=== PATIENT | female | born 1960 | race Caucasian/White ===

== ENCOUNTER 2016-11-15 19:33 | Emergency (ER) | payer BC ==
[2016-11-15 19:46] VITALS: BP 155/87
[2016-11-15] MEDS ORDERED: Amoxicillin/Clavulanate TAB* 875 MG PO ONE ×3 (20:17→22:09)
[2016-11-15] MEDS ORDERED: HYDROcodone/ACETAMIN 5-325 MG* 1 TAB PO ONE ×2 (20:17→21:39)
[2016-11-15] MEDS ORDERED: Tetan/Diph/Pertus SYR(Tdap)* 0.5 ML SYR(BOOSTRIX) use SYR IM ONE (20:17)
--- NOTE | 2016-11-15 20:17 | UC ---
Bite Injury/Animal HPI - HPI Summary HPI Summary: Broke up a dog fight between her and her sister-in -laws dogs---laceration on, pw to left wrist, nail avulsion and laceration to left middle finger tip right thumb - History of Current Complaint Chief Complaint: UCBiteInjury Stated Complaint: DOG BITES Time Seen by Provider: 11/15/16 20:10 Hx Obtained From: Patient ?: No Severity Currently: Moderate Severity Initially: Moderate Pain Intensity: 8 Pain Scale Used: 0-10 Numeric Onset/Duration: Sudden Onset, Lasting Hours, Still Present Type of Bite: Pet Has Animal Been Immunized?: Yes Character: Puncture, Full-Thickness, Abrasion/Laceration Aggravating Factor(s): Nothing Alleviating Factor(s): Nothing Associated Signs And Symptoms: Positive: Drainage Hx of Bite: Provoked by: - dogs were fighting Animal Available for Observation: Yes Animal Control Notified: Yes - Allergies/Home Medications Allergies/Adverse Reactions: Allergies Allergy/AdvReac Type Severity Reaction Status Date / Time No Known Allergies Allergy Verified 11/15/16 19:46 PMH/Surg Hx/FS Hx/Imm Hx Previously Healthy: Yes - Family History Known Family History: Positive: None Family History: denies cardiovascular issues in family lineage - Social History Occupation: Employed Full-time Lives: With Family Alcohol Use: Occasionally Substance Use Type: None Smoking Status (MU): Never Smoked Tobacco Review of Systems Constitutional: Negative Skin: Other - dog bites and pw wound as described Eyes: Negative ENT: Negative Respiratory: Negative Cardiovascular: Negative Gastrointestinal: Negative Genitourinary: Negative Motor: Negative Neurovascular: Negative Musculoskeletal: Negative, Arthralgia Neurological: Negative Psychological: Negative All Other Systems Reviewed And Are Negative: Yes Physical Exam Triage Information Reviewed: Yes Appearance: Well-Appearing, Well-Nourished, Pain Distress Vital Signs: Initial Vital Signs Temp 97.8 F 11/15/16 19:40 Pulse 117 11/15/16 19:40 Resp 12 11/15/16 19:40 BP 155/87 11/15/16 19:40 Pulse Ox 99 11/15/16 19:40 Vital Signs Reviewed: Yes Eye Exam: Normal Eyes: Positive: Conjunctiva Clear ENT Exam: Normal ENT: Positive: Normal ENT inspection, Hearing grossly normal, TMs normal. Negative: Nasal congestion, Nasal drainage, Tonsillar swelling, Tonsillar exudate, Trismus Dental Exam: Normal Neck exam: Normal Neck: Positive: Supple, Nontender Respiratory Exam: Normal Respiratory: Positive: Chest non-tender, Lungs clear, Normal breath sounds, No respiratory distress, No accessory muscle use Cardiovascular Exam: Normal Cardiovascular: Positive: RRR, No Murmur, Pulses Normal, Brisk Capillary Refill Musculoskeletal Exam: Normal Musculoskeletal: Positive: Strength Intact, ROM Intact, No Edema Neurological Exam: Normal Neurological: Positive: Alert, Muscle Tone Normal Psychological Exam: Normal Psychological: Positive: Normal Response To Family Skin Exam: Normal Skin: Positive: Other - partial skin avulsion right thumb, laceration with nail avulsion and don fracture distal left 3rd finger, PW times 2 left wrist Procedures - Laceration/Wound Repair 1 Description: Irregular Length, Depth and Shape: partially avulsed skin right thumb Betadine Prep?: No Laceration/Wound Explored: contaminated - dog bite Closure: SteriStrips Layer Closure?: No Sterile Dressing Applied?: No 2 Location: Other - left wrist Description: Irregular Length, Depth and Shape: PW Betadine Prep?: No Irrigated w/ Saline (ccs): 250 Laceration/Wound Explored: contaminated - dog bite Layer Closure?: No Sterile Dressing Applied?: Yes 3 Location: Other - left third finger Description: Irregular Length, Depth and Shape: nail avulsion, with laceration and don fracture--- washed and soaked in hiblclens and warm water Betadine Prep?: No Laceration/Wound Explored: contaminated - dog bite Layer Closure?: No Sterile Dressing Applied?: Yes - left open Diagnostics - Radiology No standard instances Xray Interpretation: Positive (See Comments) - tuft fracture left third finger Bite Injury Course/Dx - Course Course Of Treatment: dressings as applied, update Boostrix, augmentin, pain med , follow with Dr. Israel in the morning - Differential Dx/Diagnosis Differential Diagnosis/HQI/PQRI: Crush Injury, Fracture, Laceration, Puncture Provider Diagnoses: PW, open fracture left third finger, update Boostrix Discharge - Discharge Plan Condition: Stable Disposition: HOME Prescriptions: Amoxicillin/Clavulanate TAB* [Augmentin TAB 875*] 875 mg PO BID #18 tab Hydrocodone-Acetaminophen [Hydrocodone/Acetaminophen 5-325 mg] 1 tab PO Q6H PRN #16 tab MDD 4 PRN Reason: Pain Ibuprofen TAB* [Motrin TAB* 600 MG] 600 mg PO Q6H PRN #30 tab PRN Reason: pain Patient Education Materials: Amoxicillin/Clavulanate Potassium (By mouth), Diphtheria/Acellular Pertussis/Tetanus Booster Vaccine (By injection), Animal Bite (ED), DASH Eating Plan (ED), Hypertension (ED), RICE Therapy (ED) Referrals: [facility] [place] PHYSICIAN REFERRAL [Outside] - 2 Weeks Adelina Israel MD [Medical Doctor] - 1 Day
--- NOTE | 2016-11-15 21:12 | RAD ---
Indication: Left middle finger injury. 3 views of the left middle finger demonstrates a fracture through the distal tuft of the distal phalanx of the middle finger. No significant displacement is noted. IMPRESSION: Fracture through the distal tuft of the distal phalanx of the middle finger.
--- NOTE | 2016-11-15 21:13 | RAD ---
Indication: Right Thumb injury. 3 views of the thumb demonstrates no fracture. Degenerative changes of the trapezium first metacarpal joint is noted. No fracture is identified. IMPRESSION: No fracture of the thumb is noted.
--- NOTE | 2016-11-15 21:16 | RAD ---
Indication: Left wrist injury 3 views of the wrist demonstrates no fracture. No other bone or joint abnormality is identified. IMPRESSION: NO FRACTURE OF THE WRIST IS NOTED.
[2016-11-15] MEDS ORDERED: Benzoin Compound STICK TOPICAL ONE (21:36)
== END 2016-11-15 22:18 | disposition home or self-care (01) ==
LOC: UCEAST 19:33
DX: S62.603B Fracture of unspecified phalanx of left middle finger, initial encounter for open fracture (principal); S61.051A Open bite of right thumb without damage to nail, initial encounter; S61.552A Open bite of left wrist, initial encounter; W54.0XXA Bitten by dog, initial encounter; Y92.9 Unspecified place or not applicable
CPT/HCPCS: 73140; 90471; 90715; 99203; A9270-GY; G0463

== ENCOUNTER 2016-11-19 08:25 | Day surgery (SDC) | payer BC ==
[2016-11-19] MEDS ORDERED: ceFAZolin 2 GM PREMIX(*) 2 GM/50 ML BAG IVPB ONE (08:42)
[2016-11-19] MEDS ORDERED: Buffered Lidocaine 0.9% SYRIN* 5 ML/SYR SYRINGE ONE (08:43)
[2016-11-19] MEDS ORDERED: Ondansetron INJ* 2 MG/ML VIAL IV PRN (08:51)
[2016-11-19] MEDS ORDERED: PROCHLORPERAZINE INJ 5 MG/ML 2 ML VIAL IV PRN (08:51)
[2016-11-19] MEDS ORDERED: DiMENhydriNATE IV* 50 MG/ML VIAL IV PUSH PRN (08:51)
[2016-11-19] MEDS ORDERED: HYDROcodone/ACETAMIN 5-325 MG* 1 TAB PO PRN (08:51)
[2016-11-19] MEDS ORDERED: Acetaminophen TAB* 325 MG PO PRN (08:51)
[2016-11-19] MEDS ORDERED: Buffered Lidocaine 0.9% SYRIN* 5 ML/SYR SYRINGE INTRADERM ONE (08:51)
[2016-11-19] MEDS ORDERED: Midazolam* 1 MG/ML 2 ML VIAL (2 MG) ONE (09:32)
[2016-11-19] MEDS ORDERED: fentaNYL* 50 MCG/ML 2 ML VIAL (100 MCG VIAL) ONE (09:32)
[2016-11-19] MEDS ORDERED: Bupivacaine 0.25% SDV* 30 ML ONE (09:47)
[2016-11-19] MEDS ORDERED: Famotidine IV* 10 MG/ML 2 ML (20 mg) ONE (10:01)
[2016-11-19] MEDS ORDERED: Lidocaine 2% PF * 5 ML VIAL ONE (10:09)
[2016-11-19] MEDS ORDERED: Ketorolac INJ* 30 MG/ML 1 ML VIAL ONE (10:09)
[2016-11-19] MEDS ORDERED: Propofol* 10 MG/ML 20 ML BTL IV PUSH ONE (10:09)
[2016-11-19] MEDS ORDERED: KETAMINE HCL* 50 MG/ML 10 ML VIAL ONE (10:11)
[2016-11-19] MEDS ORDERED: diPHENhydraMINE IV* 50 MG/ML 1 ml VIAL (BENADRYL) ONE (10:27)
[2016-11-19] MEDS ORDERED: Dexamethasone IV* 4 MG/ML 1 ML (4 MG) ONE (10:38)
[2016-11-19 11:57] VITALS: BP 131/61
--- NOTE | 2016-11-20 04:16 | OP ---
DATE OF OPERATION: 11/19/16 - [facility] DATE OF : 60 SURGEON: Mika Porras MD PROCESS ENVIRONMENTAL TECHNICIAN: DERRICK Lowe ANESTHESIOLOGIST: Dr. Cai. ANESTHESIA: Local MAC. PRE-OP DIAGNOSES: 1. Dog bite, left middle finger tip and distal forearm. 2. Left middle finger distal phalanx tuft fracture and significant nail bed injury related to the dog bite. 3. Left distal volar forearm bite wound with infection. POST-OP DIAGNOSES: 1. Dog bite, left middle finger tip and distal forearm. 2. Left middle finger distal phalanx tuft fracture and significant nail bed injury related to the dog bite. 3. Left distal volar forearm bite wound with infection. OPERATIVE PROCEDURE: 1. I and D of left middle finger tip open fracture, debridement of skin, subcutaneous tissue, and bone. 2. Nail bed repair, left middle finger with partial avulsion of remaining nail plate. 3. I and D of left distal volar forearm bite wound. INDICATIONS: was bitten late last week by her sister's dog. She came in to the office after having been in the ER where the wound was dressed. I cleaned it up a little bit there and started her on some Augmentin last Saturday. She now presents today, Saturday, for I and D of the fracture nail bed repair. The volar forearm wound in clinic last Saturday was definitely looking infected. I had opened it just a bit and have been having her soak it. She had been taking Augmentin, it has improved, but still felt like it would improve with I and D of the puncture wound. ESTIMATED BLOOD LOSS: 5 mL. COMPLICATIONS: None. FINDINGS: As expected. DESCRIPTION OF PROCEDURE: was seen in the preoperative holding area and the correct side, site, and procedure were identified. We came back to the operating room where she got some anesthesia. We had a time-out and then I performed a digital block with 0.25% plain Marcaine as well as I anesthetized the area of the volar distal forearm bite wound. The arm was then prepped with a Betadine scrub and then draped in a standard fashion. A formal time-out was performed. I began by exsanguinating the arm with the esmarch and inflating the tourniquet to 250 mmHg. The curved iris scissors were used to remove the multiple fragments of nail plate and trim the nail right at the level of the nail fold where it was healthy and proximal to the involved area. There were a couple of necrotic edges in the nail matrix. These were trimmed back with the mohegan blade. All of the nonviable tissue was debrided. I then was able to place a two-prong skin hook and reopen the wound to expose the fracture. There were a couple of loose bony fragments that were debrided. There was some dog hair that was encountered and removed. After I had a clean debridement, I went ahead and irrigated out the wound, copious amounts of irrigation until it looked very clean. After I had debrided all of the and nonviable nail bed back to smooth clean edges, I had 2 curvilinear edges which I could then appose. I therefore placed four 6-0 fast- absorbing gut sutures to bring the nail bed edges into nice apposition. This closed down very nicely in essentially a straight transverse line. This looked very good, so I went ahead and turned my attention to the forearm. I opened up the traumatic margins proximally and distally a couple of centimeters. The total incision was 2 to 3 cm in length. The edges of the bite wound were excised sharply. The tract of the bite wound was debrided. It tracked right down to the FCR tendon sheath and went just ulnar to this, but looked like it stopped just shy of the median nerve. All of the diseased- looking tissue was excised. I went ahead and opened up the FCR tendon sheath and washed that out thoroughly. I opened up the fascia to expose the deep structures including the median nerve and flexor tendons and this was all irrigated thoroughly. I continued to irrigate the wound while taking the fingers and wrist through flexion-extension arch. Once all the fluid was completely clean and clear, I went ahead and approximated the skin very loosely with some 4-0 nylon simple interrupted sutures. The forearm wound was dressed with Xeroform, 4x4, sterile Webril, and an Gomez bandage. The finger tip was dressed with Xeroform, some ribboned 1-inch Kelvin, and some Coban. Tourniquet was deflated. The hand and finger pinked up immediately. She was then taken to the recovery room in stable condition. [id number]/[facility] #: [id number] [facility]
== END 2016-11-19 11:52 | disposition home or self-care (01) ==
LOC: OREAST 08:25
PROVIDERS: ATTEND Orthopaedic Surgery Hand Surgery
DX: S61.353A Open bite of left middle finger with damage to nail, initial encounter (principal); S51.852A Open bite of left forearm, initial encounter; S62.633A Displaced fracture of distal phalanx of left middle finger, initial encounter for closed fracture; L08.9 Local infection of the skin and subcutaneous tissue, unspecified; W54.0XXA Bitten by dog, initial encounter; Y92.9 Unspecified place or not applicable; F32.9 Major depressive disorder, single episode, unspecified
CPT/HCPCS: J0690; J1100; J1200; J1885; J2250; J2704; J3010

== ENCOUNTER 2017-01-25 21:44 | Emergency (ER) | payer SELFPAY ==
[2017-01-25 23:03] VITALS: BP 128/71
== END 2017-01-26 01:10 | disposition left against medical advice (07) ==
LOC: MERGE 21:44 → ED 21:44
DX: S01.511A Laceration without foreign body of lip, initial encounter (principal); Z53.21 Procedure and treatment not carried out due to patient leaving prior to being seen by health care provider